=== PATIENT | male | born 1985 | race Caucasian/White ===

== ENCOUNTER 2022-01-09 16:17 | Emergency (ER) | payer OTHER, SELFPAY ==
[2022-01-09 16:28] VITALS: BP 126/86; PULSE 92; RESP 18; TEMP 37.2; O2SAT 100
--- NOTE | 2022-01-09 16:35 | ED.URI ---
HPI - URI/Sore Throat General Chief Complaint: Upper Respiratory Infection Stated Complaint: Body Aches,Chills,Fatigue Time Seen by Provider: 01/09/22 16:30 Source: patient and RN notes reviewed Mode of arrival: ambulatory Limitations: no limitations History of Present Illness HPI Narrative: 36-year-old male presented for complaint of body aches, onset today at 0200. States he feels slight runny nose and generally unwell but denies other sx. Denies cough, sore throat, nausea, vomiting, diarrhea, fever or chills. Has taken DayQuil for symptoms. He is not vaccinated for flu or Covid. Related Data Home Medications Medication Instructions Recorded Confirmed No Home Medications 01/09/22 01/09/22 Allergies Allergy/AdvReac Type Severity Reaction Status Date / Time No Known Allergies Allergy Unknown Verified 01/09/22 16:37 Review of Systems Review of Systems: CONSTITUTIONAL: Endorses malaise, denies chills, sweats, fever EYES: Denies visual changes, redness, or discharge ENT: Reports rhinorrhea denies congestion, sinus pain, otalgia, sore throat CARDIOVASCULAR: Denies chest pain, palpitations, edema RESPIRATORY: Reports cough, post nasal drainage. Denies dyspnea GASTROINTESTINAL: Denies abdominal pain, nausea, vomiting, diarrhea SKIN: Denies rash or itching MUSCULOSKELETAL: Endorses myalgia NEUROLOGIC: Denies headache Exam Narrative: GENERAL: Ill-appearing, nontoxic no acute distress. HEAD: Normocephalic EYES: PERRLA, conjunctivae clear ENT: Mucous membranes moist. TM pearly devi with light reflex bilaterally; no tragal tenderness. Oropharynx erythematous without lesions or exudate, no drooling, no hoarseness, no trismus, uvula midline. NECK: Supple. No lymphadenopathy CHEST: Clear to auscultation, breath sounds equal. No wheezing, rhonchi, rales, or stridor. No respiratory distress, speaks in full sentences. HEART: Regular rate and rhythm. No murmur heard. SKIN: Warm, dry, no rash. NEURO: Alert and oriented x3. PSYCH: Normal mood and affect Course Course Emergency Course: flu neg Patient is aware of diagnosis, understands and agrees to treatment plan. Anticipatory guidance given. Patient agrees to follow-up as directed and is aware of reasons to seek care at the emergency department. Portions of this record may have been created with voice recognition software Level of Care: Express Care Visit Vital Signs Vital signs: Vital Signs Temperature 98.9 F 01/09/22 16:28 Pulse Rate 92 01/09/22 16:28 Respiratory Rate 18 01/09/22 16:28 Blood Pressure 126/86 01/09/22 16:28 Pulse Oximetry 100 01/09/22 16:28 Temperature 98.9 F 01/09/22 16:28 Pulse Rate 92 01/09/22 16:28 Respiratory Rate 18 01/09/22 16:28 Blood Pressure 126/86 01/09/22 16:28 Pulse Oximetry 100 01/09/22 16:28 reviewed MDM - URI/Sore Throat Differential Diagnosis Differential diagnosis: Likely upper respiratory infection, sinusitis and viral infection Lab Data Attestation: I reviewed the patient's lab results. Labs: Influenza A Screen Negative Reference Range: Negative Influenza B Screen Negative Reference Range: Negative Discharge Plan Discharge Clinical Impression: Viral infection Patient Disposition: Home, Self-Care Condition: Stable Instructions: Antibiotic Form, Viral Syndrome (ED) Additional Instructions: Influenza swab was negative Covid swab was sent out, we will call you with the results. Please remain quarantined until we have the results. Tylenol 1000mg every 8 hours as needed Over the counter medication for symptoms like lynne seltzer, thera flu, cough syrup, zinc can help. Rest and stay hydrated. Follow up with your primary care provider as needed in 1-2 weeks Watch for worsening symptoms, Go to the ER for shortness of breath, chest pain, heart racing, or
[2022-01-10 12:00] LABS: SARS-CoV-2 RNA PCR Positive
== END 2022-01-09 17:10 | disposition home or self-care (01) ==
PROVIDERS: Emergency Provider Nurse Practitioner Family; PCP Family Medicine
DX: U07.1 COVID-19 (principal)
CPT/HCPCS: 87804; 99213; C9803; G0463; U0003; U0005

== ENCOUNTER 2023-03-24 12:34 | Emergency (ER) | payer SELFPAY ==
[2023-03-24 12:45] VITALS: BP 139/96; PULSE 105; RESP 18; TEMP 36.5; O2SAT 96
--- NOTE | 2023-03-24 12:57 | ED.GENADULT ---
HPI - General Adult General Chief complaint: Animal Bite Stated complaint: Animal Bite Lt Foot Time Seen by Provider: 03/24/23 12:57 Source: patient Mode of arrival: ambulatory Limitations: no limitations History of Present Illness HPI narrative: 37-year-old male patient presents to the [facility] with complaints of a dog bite to left foot. Patient states that the neighbor's dog with attacking his dog and he tried to kick the dog to get him off and the patient ended up getting a bite to the foot. Patient did talk to neighbors and states that the dog is updated on all his vaccines. Patient thinks he might have had a tetanus shot within last 5 years but cannot remember so we are going to update him today. Denies any numbness or tingling to the foot. Related Data Allergies Allergy/AdvReac Type Severity Reaction Status Date / Time No Known Allergies Allergy Unknown Verified 01/09/22 16:37 Review of Systems Review of Systems: CONSTITUTIONAL: Denies fever, chills, or sweats. EYES: Denies visual changes, redness, or discharge. ENT: Denies rhinorrhea, congestion, sore throat, or otalgia. CARDIOVASCULAR: Denies chest pain, palpitations, or edema. RESPIRATORY: Denies cough or dyspnea. GASTROINTESTINAL: Denies abdominal pain, nausea, vomiting, or diarrhea. GENITOURINARY: Denies dysuria or hematuria. SKIN: Denies rash or itching. Positive dog bite to left foot MUSCULOSKELETAL: Denies back pain, joint pain, or myalgia. NEUROLOGIC: Denies headache, numbness, or weakness. PSYCHIATRIC: Denies anxiety or depression. PMFSH Comments At the time of my signature I agree with nursing past medical history, surgical, social, and family history. There is no relevant family history pertinent to the presenting complaint. Exam Narrative: GENERAL: Well-appearing, well-nourished, and in no acute distress. HEAD: Normocephalic, atraumatic. EYES: PERRLA and EOMI. ENT: Nares clear, no rhinorrhea or epistaxis. Mucous membranes moist. NECK: Supple. No lymphadenopathy CHEST: Clear to auscultation. No respiratory distress. HEART: Regular rate and rhythm. No murmur heard. Normal peripheral pulses. ABDOMEN: Soft, nontender, nondistended, normal active bowel sounds. EXTREMITIES: Normal range of motion. No edema. SKIN: Warm, dry, no rash. patient has approximately 2 cm and lack to the left foot proximal to the 4th and 5th toe with no toe involvement. Bleeding is controlled. 2 +DP pulses present. Normal cap refill. NEURO: No focal deficits. Alert and oriented x3. Course Course Level of Care: Express Care Visit Vital Signs Vital signs: Vital Signs Temperature 36.5 C 03/24/23 12:45 Pulse Rate 105 H 03/24/23 12:45 Respiratory Rate 18 03/24/23 12:45 Blood Pressure 139/96 H 03/24/23 12:45 Pulse Oximetry 96 03/24/23 12:45 Oxygen Delivery Room Air 03/24/23 12:45 Temperature 36.5 C 03/24/23 12:45 Pulse Rate 105 H 03/24/23 12:45 Respiratory Rate 18 03/24/23 12:45 Blood Pressure 139/96 H 03/24/23 12:45 Pulse Oximetry 96 03/24/23 12:45 Oxygen Delivery Room Air 03/24/23 12:45 vital signs reviewed. The patient has been informed that they may have pre-hypertension or Hypertension based on a BP reading in the department. I recommend that the patient call the primary care provider listed on their discharge instructions or a physician of their choice this week to arrange follow up for further evaluation of possible pre-hypertension or Hypertension Procedures Laceration Laceration 1: Date: 03/24/23 Time: 13:28 Site: lower extremity Side (If applicable): left Size (cm): 2 Description: linear Depth: simple, single layer Local Anesthetic: none Pre-repair: irrigated and irrigated extensively ====== Skin Level ====== Skin layer closed with: steri strips (2) Number of sutures: 2 ====== Subcutaneous Layer ====== ====== Mus
[2023-03-24] MEDS: TETANUS,DIPHTHERIA,AC PERTUSSIS ADULT (0.5 ML) BOOSTRIX IM (13:09)
== END 2023-03-24 13:38 | disposition home or self-care (01) ==
PROVIDERS: Emergency Provider Nurse Practitioner Family; PCP Family Medicine
DX: S91.312A Laceration without foreign body, left foot, initial encounter (principal); W54.0XXA Bitten by dog, initial encounter; Z23 Encounter for immunization
CPT/HCPCS: 90471; 90715; 99213; G0463

== ENCOUNTER 2023-12-19 18:08 | Emergency (ER) | payer OTHER, SELFPAY ==
[2023-12-19 18:21] VITALS: BP 133/91; PULSE 93; RESP 18; TEMP 36.4; O2SAT 98
--- NOTE | 2023-12-19 18:21 | ED.GENADULT ---
HPI - General Adult General Stated complaint: Cough, Body Ache, Runny Nose, Diarrhea Source: patient, RN notes reviewed and old records reviewed Mode of arrival: ambulatory Limitations: no limitations History of Present Illness HPI narrative: 38-year-old male patient presents to [facility] with complaints cough, congestion, myalgia, fever, chills, diarrhea, and dizziness that started yesterday. Patient taking DayQuil with no relief. Patient denies chest pain, shortness of breath, weakness, vomiting. Related Data Home Medications Medication Instructions Recorded Confirmed No Home Medications 12/19/23 12/19/23 Allergies Allergy/AdvReac Type Severity Reaction Status Date / Time No Known Allergies Allergy Verified 12/19/23 18:24 Review of Systems Constitutional: Constitutional: Reports no additional constitutional complaints, Reports body ache(s), Reports chills, Denies fatigue, Reports fever(s) and Denies headache(s) Eyes: Eyes: Reports no additional eye complaints and Denies blurry vision ENT: Reports system reviewed and no additional complaints, except as documented, Denies vertigo, Reports dizziness, Denies ear discharge, Denies otalgia, Denies facial pain, Denies headache(s), Reports nasal congestion, Reports nasal discharge, Denies sinus pain, Reports sinus pressure and Denies sore throat Cardiovascular: Cardiovascular: Reports no additional cardiovascular complaints, Denies chest pain, Denies chest pain at rest, Denies rapid heart rate and Denies dyspnea Respiratory: Respiratory: Reports no additional respiratory complaints, Reports chest congestion, Reports cough, Denies pain on inspiration, Denies pain with cough and Denies dyspnea Gastrointestinal: Gastrointestinal: Denies abdominal pain, Reports diarrhea, Denies nausea and Denies vomiting Integumentary/Breasts: Skin/Breast: Denies rash Neurologic: Reports system reviewed and no additional complaints, except as documented, Denies vertigo, Reports dizziness and Reports headache(s) Endocrine: Endocrine: Denies fatigue PMFSH Comments At the time of my signature, I reviewed and agree with the nursing past medical, surgical, social, and family history. There is no relevant family history pertinent to the patient complaint. Exam Const: General: cooperative, no acute distress, ill appearing acutely and well nourished Nutritional Appearance: well nourished Orientation/consciousness: patient oriented x3 Limitations: no limitations HENMT: Head: normal to inspection and normocephalic Ears: external ears normal, TM's normal bilaterally, mastoids normal and Abnormal EAC present Face/Nose/Sinus: Nasal discharge present purulent and normal facial exam Face and sinus: normal facial exam Mouth: Yes Normal oral and palatal mucosa present, Yes oropharynx normal and Yes moist mucous membranes Throat: tonsils normal, uvula midline, posterior oropharynx abnormal and no uvular edema Eyes: General: appearance normal, both eyes and all related structures Sclera: sclerae normal Pupils: Equal, round and reactive pupils present Resp: Effort & Inspection: normal respiratory effort, able to speak in complete sentences, no audible wheezes, no cough, no respiratory distress and no retractions Auscultation: clear to auscultation bilaterally, no crackles, no rales, no rhonchi and no wheezes Cardio: Rate: regular rate Rhythm: regular rhythm Skin: General skin exam: normal color and no rashes or lesions noted Neuro: General: patient oriented x3 Cranial nerves: Yes Equal, round and reactive pupils present Psych: Appearance: grossly normal Mental Status: mental status grossly normal Speech and movement: Normal speech and movement present Affect: normal affect Course Course Emergency Course: Patient is aware of diagnosis, understands and agrees to treatment plan.? Anticipatory guidance given.? Patient agrees to follow-up as directed and is aware of reasons to seek care at the
== END 2023-12-19 18:38 | disposition home or self-care (01) ==
PROVIDERS: Emergency Provider Registered Nurse; PCP Family Medicine
DX: J10.1 Influenza due to other identified influenza virus with other respiratory manifestations (principal); Z20.822 Contact with and (suspected) exposure to COVID-19
CPT/HCPCS: 87426; 87804; 99203; G0463

== ENCOUNTER 2025-01-16 05:57 | Emergency (ER) | payer OTHER, SELFPAY ==
[2025-01-16 06:00] VITALS: BP 142/98; PULSE 80; RESP 20; TEMP 36.2; O2SAT 100
[2025-01-16] MEDS: ONDANSETRON INJ 4 MG/2 ML VIAL IV PUSH (06:34)
[2025-01-16 06:49] LABS: Basophils Percent Auto 0.2 % (0.2-1.2); Eosinophils Absolute Auto 0.2 K/mm3 (0-0.3); Eosinophils Percent Auto 2.8 % (0-4.4); Hematocrit 46.6 % (42.0-52.0); Immature Granulocyte Absolute 0.03 K/mm3 (0.00-0.031); Immature Granulocyte Percent A 0.5 % (0-0.5); Lymphocytes Absolute Auto 1.82 K/mm3 (0.9-3.2); Lymphocytes Percent Auto 29.5 % (18.3-44.2); Mean Corpuscular HGB Conc 34.3 g/dl (32-36); Mean Corpuscular Hemoglobin 31.1 pg (26-34); Mean Corpuscular Volume 90.7 fl (80-100); Mean Platelet Volume 10.1 fl (7.4-10.4); Monocytes Absolute Auto 0.4 K/mm3 (0.1-0.6); Monocytes Percent Auto 6.2 % (2.6-8.5); Neutrophils Absolute Auto 3.8 K/mm3 (1.3-6.7); Neutrophils Percent Auto 60.8 % (45.5-73.1); Platelet Count Result 213 k/mm3 (150-375); Red Blood Count 5.14 M/mm3 (4.6-6.20); Red Cell Distribution Width 12.9 % (11.5-14.5); White Blood Count 6.2 K/mm3 (4.5-10.0)
[2025-01-16 06:55] VITALS: BP 123/86; PULSE 71; RESP 14; O2SAT 100
[2025-01-16 06:56] LABS: Alanine Aminotransferase 40 U/L (6-50); Albumin Level 4.4 g/dL (3.5-5.1); Alkaline Phosphatase 87 U/L (38-126); Anion Gap 11 mmol/L (4-12); Aspartate Amino Transferase 27 U/L (17-59); Bilirubin,Total 0.7 mg/dL (0.2-1.3); Blood Urea Nitrogen 18 mg/dL (9-20); Calcium 9.2 mg/dL (8.4-10.2); Carbon Dioxide 24 mmol/L (22-30); Chloride 103 mmol/L (98-107); Estimated CRCL calculation 118 ml/min; Estimated Glomerular Filt Rate > 60; Glucose 147 mg/dL (65-110); Lipase 77 U/L (23-300); Potassium 3.9 mmol/L (3.4-5.0); Sodium 138 mmol/L (137-145)
[2025-01-16 07:30] VITALS: BP 120/88; PULSE 76; RESP 17; O2SAT 94
[2025-01-16] MEDS: MORPHINE SULFATE (*CRX) 4 MG/ML INJ IV PUSH (07:50)
--- NOTE | 2025-01-16 07:55 | PC.NURSE ---
US at bedside
[2025-01-16 09:00] VITALS: BP 123/88; PULSE 73; RESP 14; O2SAT 96
[2025-01-16 10:30] VITALS: BP 127/88; PULSE 78; RESP 13; O2SAT 96
[2025-01-16 10:37] LABS: Add Urine Microscopic? YES; Appearance Urine Cloudy (Clear); Bacteria Urine None Seen /hpf; Bilirubin Urine Negative (Negative); Blood Urine Negative (Negative); Color Urine Yellow (Yellow); Glucose Urine UA Negative (Negative); Ketones Urine Trace mg/dL (Negative); Leukocyte Esterase Ur Negative LEU/UL (Negative); Mucus Urine Present /lpf; Nitrate Urine Negative (Negative); Non Pathogenic Casts 0-2; Protein Urine Trace mg/dL (Negative); RBC Urine 0-2 /hpf (0-2); Squamous Epithelial Cell Urine None Seen /hpf (Few); WBC Urine 0-5 /hpf (0-3); pH Urine 5.5 (5.0-9.0)
--- NOTE | 2025-01-16 11:57 | ED.GENADULT ---
HPI - General Adult General Chief complaint: Abdominal Pain Stated complaint: Epigastric pain Time Seen by Provider: 01/16/25 06:59 History of Present Illness HPI narrative: Patient is a 39-year-old male who presents ER with epigastric pain. Intermittent over last week. Occurs at night. Feels full in the upper part of his abdomen and nauseous. No diarrhea. No pain radiating into the back. Tried [id number] medication with minimal improvement. No chest pain difficulty breathing. Denies urinary symptoms. One drink alcohol last night but no abuse. No history of pancreatitis. Related Data Allergies Allergy/AdvReac Type Severity Reaction Status Date / Time No Known Allergies Allergy Verified 01/16/25 06:02 Review of Systems Review of Systems: All systems reviewed & are unremarkable except as noted in HPI and below Constitutional: Constitutional: Reports no additional constitutional complaints Cardiovascular: Cardiovascular: Reports no additional cardiovascular complaints Respiratory: Respiratory: Reports no additional respiratory complaints Gastrointestinal: Gastrointestinal: Reports no additional gastrointestinal complaints PMF Past Medical History Medical History (Updated 01/16/25 @ 18:49 by Fletcher Ingram MD) Healthy adult male Surgical History Surgical History (Updated 01/16/25 @ 18:49 by Fletcher Ingram MD) H/O wrist surgery Exam Narrative: GENERAL: Well-appearing, well-nourished, and in no acute distress. HEAD: Normocephalic, atraumatic. ENT: Mucous membranes moist. CHEST: Clear to auscultation. No respiratory distress. HEART: Regular rate and rhythm. Normal peripheral pulses. ABDOMEN: Soft, nontender, nondistended. EXTREMITIES: Normal range of motion. No edema. SKIN: Warm, dry, no rash. NEURO: Alert and oriented x3. PSYCH: Normal mood and affect. Course Course Emergency Course: Benign exam without rebound or guarding. Lab work normal and ultrasound shows fatty liver. Discussed bland diet with PPI for home and follow-up with PCP. May need GI referral if symptoms persist. Vital Signs Vital signs: Vital Signs Temperature 97.2 F L 01/16/25 06:00 Pulse Rate 80 01/16/25 06:00 Respiratory Rate 20 01/16/25 06:00 Blood Pressure 142/98 H 01/16/25 06:00 Pulse Oximetry 100 01/16/25 06:00 Oxygen Delivery Room Air 01/16/25 06:00 Temperature 97.2 F L 03/01/25 06:00 Pulse Rate 84 01/16/25 12:00 Respiratory Rate 12 01/16/25 12:00 Blood Pressure 130/92 H 01/16/25 12:00 Pulse Oximetry 96 01/16/25 12:00 Oxygen Delivery Room Air 01/16/25 06:00 Medical Decision Making Vital Signs Vital Signs: Vital Signs Temperature 97.2 F L 01/16/25 06:00 Pulse Rate 80 01/16/25 06:00 Respiratory Rate 20 01/16/25 06:00 Blood Pressure 142/98 H 01/16/25 06:00 Pulse Oximetry 100 01/16/25 06:00 Oxygen Delivery Room Air 01/16/25 06:00 Temperature 97.2 F L 01/16/25 06:00 Pulse Rate 84 01/16/25 12:00 Respiratory Rate 12 01/16/25 12:00 Blood Pressure 130/92 H 01/16/25 12:00 Pulse Oximetry 96 01/16/25 12:00 Oxygen Delivery Room Air 01/16/25 06:00 Lab Data 01/16/25 06:39 01/16/25 06:39 Labs: Lab Results 01/16/25 01/16/25 Range/Units 06:39 10:03 WBC 6.2 (4.5-10.0) K/mm3 RBC 5.14 (4.6-6.20) M/mm3 Hgb 16.0 (14.0-18.0) g/dL Hct 46.6 (42.0-52.0) % MCV 90.7 (80-100) fl MCH 31.1 (26-34) pg MCHC 34.3 (32-36) g/dl RDW 12.9 (11.5-14.5) % Plt Count 213 (150-375) k/mm3 MPV 10.1 (7.4-10.4) fl Immature Gran % (Auto) 0.5 (0-0.5) % Neut % (Auto) 60.8 (45.5-73.1) % Lymph % (Auto) 29.5 (18.3-44.2) % [place] % (Auto) 6.2 (2.6-8.5) % Eos % (Auto) 2.8 (0-4.4) % Baso % (Auto) 0.2 (0.2-1.2) % Lymph # (Auto) 1.82 (0.9-3.2) K/mm3 [place] # (Auto) 0.4 (0.1-0.6) K/mm3 Eos # (Auto) 0.2 (0-0.3) K/mm3 Baso # (Auto) 0.0 (0.0-0.1) K/mm3 Abs Immat Gran (auto) 0.03 (0.00-0.031) K/mm3 Absolute Neuts (auto) 3.8 (1.3-6.7) K/mm3 Absolute Nucleated RBC 0.000 (0.0-0.012) K/mm3 Nucleated RBC % 0.0 (0.0-0.2) % Sodium 138 (137-145) mmol/L Potassium 3.9 (3.4-5.0) mmol/L Chloride 103 (98-107) mmol/L Carbon Dioxide 24 (22-30) mmol/L Anion Gap 11 (4-12) mmol/L BUN 18 (9-20) mg/dL Creatinine 0.91 (0.7-1.3) mg/dL Estim Creat Clear Calc 118 ml/min Estimated GFR > 60 (59 - ) Glucose 147 H (65-110) mg/dL Calcium 9.2 (8.4-10.2) mg/dL Total Bilirubin 0.7 (0.2-1.3) mg/dL AST 27 (17-59) U/L ALT 40 (6-50) U/L Alkaline Phosphatase 87 (38-126) U/L Total Protein 8.0 (6.3-8.2) g/dL Albumin 4.4 (3.5-5.1) g/dL Lipase 77 (23-300) U/L Urine Color Yellow (Yellow) Urine Appearance Cloudy H (Clear) Urine pH 5.5 (5.0-9.0) Ur Specific [place] 1.030 (1.001-1.035) Urine Protein Trace (Negative) mg/dL Urine Glucose (UA) Negative (Negative) mg/dL Urine Ketones Trace H (Negative) mg/dL Ur Blood (Man) Negative (Negative) Urine Nitrate Negative (Negative) Urine Bilirubin Negative (Negative) Urine Urobilinogen 1.0 (<2.0) mg/dL Leukocyte Esterase Rfl Negative (Negative) LAYO/UL Urine RBC 0-2 (0-2) /hpf Urine WBC 0-5 (0-3) /hpf Ur Squamous Epith Cells None seen (Few) /hpf Urine Bacteria None seen /hpf Urine Casts 0-2 Urine Mucus Present /lpf Imaging Data Radiologist's impression: ITS Impressions Upper Quadrant Ultrasound 01/16/25 09:07 IMPRESSION: 1. Normal right upper quadrant ultrasound. Discharge Plan Discharge Clinical Impression: Acute epigastric pain Patient Disposition: Home, Self-Care Condition: Stable Instructions: Epigastric Pain (ED) Additional Instructions: Return to the emergency department if you develop severe abdominal pain, severe nausea and vomiting to the point where you are unable to keep down fluids, if you develop chest pain or difficulty breathing, blood in your stool, dizziness or fainting, or if you develop any other new or concerning symptoms as these could be signs of more serious medical illness. Try to stay well hydrated. Patient Language: Wolof Prescriptions: New pantoprazole 20 mg tablet,delayed release (DR/EC) 20 mg PO HS Qty: 14 0RF No Action mupirocin 2 % ointment 1 applic topical BID Qty: 22 0RF amoxicillin-pot clavulanate 875-125 mg tablet 1 tablet PO Q12H 7 Days Qty: 14 0RF Follow-up/Referrals: Jose Sommre MD [Primary Care Provider] - 1 Week
[2025-01-16 12:00] VITALS: BP 130/92; PULSE 84; RESP 12; O2SAT 96
== END 2025-01-16 12:59 | disposition home or self-care (01) ==
PROVIDERS: Student in an Organized Health Care Education/Training Program; Emergency Provider Emergency Medicine; PCP Family Medicine
DX: R10.13 Epigastric pain (principal)
CPT/HCPCS: 36415; 76705; 80053; 81001; 83690; 85025; 96374; 96375; 99284; J2270; J2405

== ENCOUNTER 2025-02-11 08:51 | Outpatient (CLI) | payer OTHER, SELFPAY ==
--- NOTE | ~2025-02-11 | NM_ITS ---
EXAMINATION: NM hepatobiliary wo pharm DATE: 02/11/2025 12:24 CDT INDICATION: Epigastric pain COMPARISON: Ultrasound dated 01/16/2025. TECHNIQUE: 4.3 mCi Tc-99m mebrofenin (Choletec) was administered intravenously. Scintigraphic images of the abdomen were obtained for one hour. At the 1 hour time point, the patient drank 8 oz Ensure, and imaging was continued for 60 minutes. Gallbladder ejection fraction was calculated by the technol ogist. FINDINGS: There is normal clearance of radiotracer from the blood pool. There is homogeneous tracer u ptake by the liver. Activity progresses to the bowel and gallbladder. The gallbladder ejection fract ion is 31%. Note that with this technique, normal GBEF >= 33%. IMPRESSION: 1. Mildly decreased gallbladder ejection fraction measuring 50% Reviewed, dictated and finalized at location A.
--- OUTSIDE RECORDS SUMMARY | 2025-02-11 09:27 | XMS_ITS | Clinical Summary ---
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 14 tablet 01/20/2025 5 metroNIDAZOLE (FLAGYL) 500 MG tablet Take 1 tablet (500 mg total) by mouth 3 (three) times daily for 7 days. 21 tablet 01/20/2025 5 Active Problems Problem Noted Date Diagnosed Date Osteoporosis 04/28/2019 Encounters Date Type Department Care Team Description 01/20/2025 11:09 AM SMALL BUSINESS DIRECTOR - 01/20/2025 1:40 PM [facility] Emergency [facility] Emergency Room [address] [place] [address] Alcides Cobb MD Abdominal Pain Discharge Disposition: Home or Self Care (Routine Discharge) 01/20/2025 Travel from Last 3 Months Family History Medical History Relation Comments None Mother Relation Status Comments Mother Social History Tobacco Use Types Packs/Day Years Used Date Smoking Tobacco: Former Cigarettes 1 14 1 7 - 2010 Smokeless Tobacco: Never Alcohol Use Standard Drinks/Week Comments Yes 0 (1 standard drink = 0.6 oz pur e alcohol) AUDIT-C Answer Date Recorded Frequency of Alcohol Consumption 2-4 times a mon th 04/16/2019 Average Number of Drinks 1 or 2 019 Frequency of Binge Drinking Not on file 03/20 PHQ-2 Answer Date Recorded PHQ-2 Score 0 10/27/2019 Sex and Gender Information Value Date Recorded Sex Assigned at Male 01/24/2025 8:03 PM CDT Legal Sex Male 12:17 PM CDT Gender Identity Not on file Sexual Orientation Not on file Occupation Industry Job Start Date Job End Date Not on file Not on file Not on file Not on file Last Filed Vital Signs Vital Sign Reading Time Taken Comments Blood Pressure 137/101 01/20/2025 11:15 AM SMALL BUSINESS DIRECTOR Pulse 91 01/20/2025 11:15 AM SMALL BUSINESS DIRECTOR Temperature 35.8 C (96.5 F) 01/20/2025 11:15 AM SMALL BUSINESS DIRECTOR Respiratory Rate 18 01/20/2025 11:15 AM SMALL BUSINESS DIRECTOR Oxygen Saturation 95% 01/20/2025 11:15 AM SMALL BUSINESS DIRECTOR Inhaled Oxygen Concentration - - Weight 100.5 kg (221 lb 9 oz) 01/20/2025 11:15 A M SMALL BUSINESS DIRECTOR Height 182.9 cm (6') 01/20/2025 11:15 AM SMALL BUSINESS DIRECTOR Body Mass Index 30.05 01/20/2025 11:15 AM SMALL BUSINESS DIRECTOR Plan of Treatment Health Maintenance Due Date Last Done Comments Annual Physical 1987 Hepatitis C 2002 Hepatitis B Vaccines (1 of 3 - 19+ 3-dose series) 2003 COVID-19 Vaccine (2023-2 5 season) 2024 Influenza Adult (#1) 2024 DTaP, Tdap and Td Vaccines ( 2 - Td or Tdap) 03/24/2033 03/24/2023 HPV Vaccines Aged Out No longer eligi ble based on patient's age to complete this topic Meningococcal B Vaccine Aged Out No l onger eligible based on patient's age to complete this topic Meningococcal Vaccine Aged Out No ney simran eligible based on patient's age to complete this topic Pneumococcal Vaccine: Pediat rics (0 to 5 Years) and At-Risk Patients (6 to 64 Years) Aged Out No longer eligi ble based on patient's age to complete this topic RSV Immunizations Under 20 Months Aged Out No longer eligible based on patient's age to complete this topic Procedures Procedure Name Priority Date/Time Associated Diagnosis Comments XR CHEST PORTABLE STAT 01/20/2025 12: 14 [address] [employer] [address] ABD+PEL W CON STAT 01/20/2025 12:1 0 PM SMALL BUSINESS DIRECTOR ECG 12-LEAD Routine 01/20/2025 11:30 AM SMALL BUSINESS DIRECTOR LIPASE STAT 01/20/2025 11:22 AM SMALL BUSINESS DIRECTOR LACTIC ACID W REFLEX (SEPSIS) STAT 01/20/2025 11:22 AM SMALL BUSINESS DIRECTOR TROPONIN, QUANT STAT 01/20/2025 11:22 AM SMALL BUSINESS DIRECTOR COMPREHENSIVE METABOLIC PANEL STAT 01/20/2025 11:22 AM SMALL BUSINESS DIRECTOR CBC W/DIFF AUTOMATED STAT 01/20/2025 11:22 AM SMALL BUSINESS DIRECTOR from Last 3 Months Results * XR CHEST PORTABLE (01/20/2025 12:14 PM SMALL BUSINESS DIRECTOR) Anatomical Region Laterality Modality Chest Radiographic Isha ging 01/20/2025 12:1 5 PM SMALL BUSINESS DIRECTOR Impressions 01/20/2025 12:16 PM SMALL BUSINESS DIRECTOR IMPRESSION: No acute cardiopulmonary abnormality. Ordered By: ALCIDES COBB Interpreted By: Magdy Stovall MD, 01/20/2025 12:15 PM Narrative 01/20/2025 12:16 PM SMALL BUSINESS DIRECTOR [facility] [address] [place] [address] Procedure(s): XR CHEST PORTABLE Date of service: 01/20/2025 12:10 PM Provided clinical information: 39 years, Male, epigastric pain Procedure and materials: AP portable Comparison studies: None. Findings: Cardiac silhouette is within normal limits. Lungs expanded clear of any consolidations. No effusions. Procedure Note Magdy Stovall MD - 01/20/2025 [facility] [address] [place] [address] Procedure(s): XR CHEST PORTABLE Date of service: 01/20/2025 12:10 PM Provided clinical information: 39 years, Male, epigastric pain Procedure and materials: AP portable Comparison studies: None. Findings: Cardiac silhouette is within normal limits. Lungs expanded clear of anyconsolidations. No effusions. IMPRESSION: No acute cardiopulmonary abnormality. Ordered By: ALCIDES COBB Interpreted By: Magdy Stovall MD, 01/20/2025 12:15 PM Alcides Cobb MD GENERAL IMAGING Final Result * CT ABD+PEL W IV CON ONLY (01/20/2025 12:10 PM SMALL BUSINESS DIRECTOR) Anatomical Region Laterality Modality Abdomen Computed Tomogra phy 01/20/2025 12:1 1 PM SMALL BUSINESS DIRECTOR Impressions 01/20/2025 12:17 PM SMALL BUSINESS DIRECTOR IMPRESSION: Clinical thickening is present ascending and transverse colon. This may relate to inflammatory or infectious change. Mild colonic diverticulosis. No evidence of acute diverticulitis. No acute inflammatory changes within the abdomen or pelvis. Incidental note is made of a small gastric diverticulum. Ordered By: ALCIDES COBB Interpreted By: Magdy Stovall MD, 01/20/2025 12:11 PM Narrative 01/20/2025 12:17 PM SMALL BUSINESS DIRECTOR [facility] [address] [place] [id number] Procedure(s): CT ABD+PEL W CON Date of service: 01/20/2025 12:04 PM Provided clinical information: 39 years, Male, abdominal pain MID ABD AND UMBILICAL PAIN X1 WEEK Procedure and materials: Helical images of the abdomen and pelvis are obtained from superior to the diaphragm to inferior to the initial tuberosities. Examination performed after intravenous contrast. 75 mL Isovue-370. A dose lowering technique was used for this procedure, which may include, but is not limited to, dose reduction technique, automated exposure control, iterative reconstruction, ALARA (As Low As Reasonably Achievable), or Image Gently techniques. Comparison studies: None. Findings: CT abdomen and pelvis: Lung Bases: Atelectatic changes are present in the lung bases. Adrenals:Normal. Spleen:Unremarkable. Gallbladder and Biliary system:No CT evidence of cholelithiasis. No biliary ductal dilatation. Pancreas:Unremarkable. Liver:Unremarkable. Kidneys:Unremarkable. Bowel:Colonic diverticulosis is present. No evidence of acute diverticulitis. Colonic wall thickening is present in the region of the transverse colon as well as descending colon. This may be a due to inflammatory infectious change. No small bowel dilatation is present. Incidental note is made of a small gastric diverticulum. Aorta and Retroperitoneum:No enlarged lymph nodes. Aorta is not aneurysmal. Pelvic Organs:Urinary bladder is unremarkable. Prostate is not enlarged. Bone/Musculoskeletal: Loss height of the disc space is present at L5-S1. Free fluid: None Procedure Note Magdy Stovall MD - 01/20/2025 [facility] [address] [address] [place] [address] Procedure(s): CT ABD+PEL W CON Date of service: 01/20/2025 12:04 PM Provided clinical information: 39 years, Male, abdominal pain MID ABDAND UMBILICAL PAIN X1 WEEK Procedure and materials: Helical images of the abdomen and pelvis areobtained from superior to the diaphragm to inferior to the initialtuberosities. Examination performed after intravenous contrast. 75 mLIsovue-370. A dose lowering technique was used for this procedure, which may include,but is not limited to, dose reduction technique, automated exposurecontrol, iterative reconstruction, ALARA (As Low As ReasonablyAchievable), or Image Gently techniques. Comparison studies: None. Findings: CT abdomen and pelvis: Lung Bases: Atelectatic changes are present in the lung bases. Adrenals:Normal. Spleen:Unremarkable. Gallbladder and Biliary system:No CT evidence of cholelithiasis. Nobiliary ductal dilatation. Pancreas:Unremarkable. Liver:Unremarkable. Kidneys:Unremarkable. Bowel:Colonic diverticulosis is present. No evidence of acutediverticulitis. Colonic wall thickening is present in the region of thetransverse colon as well as descending colon. This may be a due toinflammatory infectious change. No small bowel dilatation is present. Incidental note is made of a small gastric diverticulum. Aorta and Retroperitoneum:No enlarged lymph nodes. Aorta is notaneurysmal. Pelvic Organs:Urinary bladder is unremarkable. Prostate is not enlarged. Bone/Musculoskeletal: Loss height of the disc space is present at L5-S1. Free fluid: None IMPRESSION: Clinical thickening is present ascending and transverse colon. This mayrelate to inflammatory or infectious change. Mild colonic diverticulosis.No evidence of acute diverticulitis. No acute inflammatory changes within the abdomen or pelvis. Incidental note is made of a small gastric diverticulum. 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1985 Requested By: ALCIDES COBB Order Number: [id number] Reading MD: Trent Carvajal Measurements Intervals [place] Rate: 82 P: 244 [place]: 174 QRS: 236 QRSD: 106 T: 233 QT: 358 QTc: 419 Interpretive Statements Normal Sinus Rhythm POSSIBLE RIGHT VENTRICULAR HYPERTROPHY [SOME/ALL OF: PROMINENT R IN V1, LATE TRANSITION, RAD, JORGE, SSS] INFERIOR MYOCARDIAL INFARCTION , OF INDETERMINATE AGE [40+ ms Q WAVE AND/OR ST/T ABNORMALITY IN II/aVF] No previous ECG available for comparison L BUSINESS DIRECTOR Procedure Note Trent Carvajal MD - 01/22/2025 [facility] Test Date: 2025-01-20 Pat Name: RUPERT GLEZ Department: 85 Room: EXAM 404 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1985 Requested By: ALCIDES COBB Order Number: [id number] Reading MD: Trent Carvajal Measurements Intervals [place] Rate: 82 P: 244 [place]: 174 QRS: 236 QRSD: 106 T: 233 QT: 358 QTc: 419 Interpretive Statements Normal Sinus Rhythm POSSIBLE RIGHT VENTRICULAR HYPERTROPHY [SOME/ALL OF: PROMINENT R IN V1,LATE TRANSITION, RAD, JORGE, SSS] INFERIOR MYOCARDIAL INFARCTION , OF INDETERMINATE AGE [40+ ms Q WAVEAND/OR ST/T ABNORMALITY IN II/aVF] No previous ECG available for comparison L BUSINESS DIRECTOR Alcides Cobb MD ECG ORDERABLES Final Result Performing Organization Address [facility]/ZIP Co de Phone Number [facility] ([facility]) RAD * LACTIC ACID W REFLEX (SEPSIS) (01/20/2025 11:22 AM SMALL BUSINESS DIRECTOR) LACTIC ACID VENOUS 1.1 0.4 - 2.0 MMOL/L 01/20/2025 11:45 AM SMALL BUSINESS DIRECTOR [facility] 01/20/2025 11:2 2 AM SMALL BUSINESS DIRECTOR Alcides Cobb MD LABORATORY Final Result Performing Organization Address City/[facility]/ZIP Co de Phone Number [facility] [address] [place] [address], [place] [phone] * (ABNORMAL) COMPREHENSIVE METABOLIC PANEL (01/20/2025 11:22 AM SMALL BUSINESS DIRECTOR) GLUCOSE 105(H) 70 - 99 MG/DL 01/20/2025 11:42 AM SMALL BUSINESS DIRECTOR [facility] BUN 15 7 - 18 MG/DL 01/20/2025 11:42 AM [facility] CREATININE S/P/B 1.01 0.7 - 1.3 MG/DL 01/20/2025 11:42 AM [facility] SODIUM S/P/B 141 136 - 145 MMOL/L 01/20/2025 11:42 AM [facility] POTASSIUM S/P/B 3.9 3.5 - 5.1 MMOL/L 01/20/2025 11:42 AM [facility] CHLORIDE S/P/B 103 100 - 108 MMOL/L 01/20/2025 11:42 AM [facility] CO2 27.5 21 - 32 MMOL/L 01/20/2025 11:42 AM [facility] CALCIUM S/P/B 9.4 8.5 - 10.1 MG/DL 01/20/2025 11:42 AM [facility] BILIRUBIN TOTAL S/P/B 0.6 0.2 - 1.2 MG/DL 01/20/2025 11:42 AM [facility] TOTAL PROTEIN S/P/B 7.5 6.4 - 8.2 G/DL 01/20/2025 11:42 AM [facility] ALBUMIN S/P/B 4.3 3.4 - 5.0 G/DL 01/20/2025 11:42 AM [facility] AST 9(L) 15 - 37 U/L 01/20/2025 11:42 AM [facility] ALT 37 16 - 60 U/L 01/20/2025 11:42 AM [facility] ALKALINE PHOSPHATASE S/P/B 96 50 - 136 U/L 01/20/2025 11:42 AM [facility] ANION GAP 10.5 5 - 15 MMOL/L 01/20/2025 11:42 AM [facility] BUN CREATININE RATIO 14.9 6 - 26 01/20/2025 11:42 AM [facility] A/G RATIO 1.3 1.0 - 2.0 RATIO 01/20/2025 11:42 AM [facility] GFR ESTIMATE >90 >90 ML/MIN/1.7 3 M2 01/20/2025 11:42 AM [facility] Comment: NOTE: eGFR is not calculated for patients <18 years of age. This is an estimated GFR calculation using the new CKD EPI creatinine equation without race and so does not require a correction factor for race. This estimated GFR should not be used for calculating drug doses. 01/20/2025 11:2 2 AM SMALL BUSINESS DIRECTOR us Alcides Cobb MD LABORATORY Final Result [facility] [address] [place] [address], [place] [phone] * (ABNORMAL) CBC W/DIFF AUTOMATED (01/20/2025 11:22 AM [facility]) WBC 7.08 4.4 - 11.0 x10'3/uL 01/20/2025 11:29 AM [facility] RBC 5.32 4.50 - 5.90 x10'6/uL 01/20/2025 11:29 AM [facility] HGB 16.6 14.0 - 17.5 G/DL 01/20/2025 11:29 AM [facility] HCT 46.9 41.5 - 50.4 % 01/20/2025 11:29 AM [facility] MCV 88.2 80.0 - 96.0 FL 01/20/2025 11:29 AM [facility] MCH 31.2 26.5 - 31.4 PG 01/20/2025 11:29 AM [facility] MCHC 35.4(H) 31.9 - 34.8 G/DL 01/20/2025 11:29 AM [facility] RDW 12.8 12.3 - 14.3 % 01/20/2025 11:29 AM [facility] PLT 189 151 - 353 x10'3/uL 01/20/2025 11:29 AM [facility] MPV 9.8 9.7 - 11.9 FL 01/20/2025 11:29 AM [facility] RBC MORPHOLOGY NORMAL 01/20/2025 11:29 AM [facility] PLT MORPH. NORMAL 01/20/2025 11:29 AM [facility] WBC MORPHOLOGY NORMAL 01/20/2025 11:29 AM [facility] LYMPHOCYTES % 26.4 15.8 - 45.0 % 01/20/2025 11:29 AM [facility] NEUTROPHILS % 52.6 42.1 - 71.9 % 01/20/2025 11:29 AM [facility] MONOCYTES % 13.8(H) 5.7 - 12.5 % 01/20/2025 11:29 AM [facility] EOSINOPHILS 6.4(H) 0.0 - 5.6 % 01/20/2025 11:29 AM [facility] BASOPHILS 0.4 0.0 - 1.3 % 01/20/2025 11:29 AM [facility] ABS. NEUTROPHILS 3.72 1.40 - 6.00 x10'3/uL 01/20/2025 11:29 AM [facility] IMMATURE GRANS % 0.4 0.0 - 0.5 % 01/20/2025 11:29 AM SMALL BUSINESS DIRECTOR [facility] ABS. LYMPHOCYTES 1.87 0.80 - 4.70 x10'3/uL 01/20/2025 11:29 AM SMALL BUSINESS DIRECTOR [facility] 01/20/2025 11:2 2 AM SMALL BUSINESS DIRECTOR us Alcides Cobb MD LABORATORY Final Result [facility] [address] [place] [address], [place] [phone] * TROPONIN, QUANT (01/20/2025 11:22 AM SMALL BUSINESS DIRECTOR) Pathologist [facility] [place] TROPONIN I HIGH SENSITIVITY 4 0 - 75 ng/L 01/20/2025 11:47 AM SMALL BUSINESS DIRECTOR [facility] Comment: HIGH DOSES OF BIOTIN, TROPONIN-SPECIFIC AUTOANTIBODIES, AND ANTIBODY THERAPY CONTAINING HAMA MAY INTERFERE WITH THIS TEST RESULT. CORRELATION TO CLINICAL HISTORY AND PRESENTATION RECOMMENDED. 01/20/2025 11:2 2 AM SMALL BUSINESS DIRECTOR us Alcides Cobb MD LABORATORY Final Result Performing Organization Address City/[facility]/ZIP Co de Phone Number [facility] [address] [place] [address], [place] [phone] * LIPASE (01/20/2025 11:22 AM SMALL BUSINESS DIRECTOR) Pathologist [facility] [place] LIPASE 35 16 - 77 UNITS/L 01/20/2025 11:42 AM SMALL BUSINESS DIRECTOR [facility] 01/20/2025 11:2 2 AM SMALL BUSINESS DIRECTOR us Alcides Cobb MD LABORATORY Final Result Performing Organization Address City/[facility]/ZIP Co de Phone Number [facility] [address] [place] [address], [place] [phone] from Last 3 Months Insurance [facility] [employer] Care Teams 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
== END 2025-02-11 08:52 | disposition home or self-care (01) ==
PROVIDERS: PCP Family Medicine
DX: R10.13 Epigastric pain (principal); K82.8 Other specified diseases of gallbladder
CPT/HCPCS: 78226; A9537